=== PATIENT | female | born 1995 | race African-American/Black ===

== ENCOUNTER 2017-08-17 16:52 | Inpatient (IN) | payer OTHER ==
[2017-08-17] VITALS (7 sets, daily range): BP systolic 116–163; BP diastolic 67–82; PULSE 78–87; TEMP 36.8; O2SAT 98–100; Ht 170.2 cm; Wt 156.4 kg
[~2017-08-17] VITALS: Ht 170.2 cm; Wt 156.4 kg
[~2017-08-17 16:52] MED LIST: CHOL200010 PO; LISI-461 PO; LOSA50TA54 PO; NEOM1SUS21 OP
[2017-08-17] MEDS ORDERED: METHYLPREDNISOLONE 125 MG VIAL IV STA (17:20)
[2017-08-17] MEDS ORDERED: DiphenhydrAMINE HCL 50 MG/ML VIAL IV STA (17:20)
[2017-08-17] MEDS ORDERED: SODIUM CHLORIDE 0.9% 1000ML 1,000 ML IV STA (17:20)
[2017-08-17] MEDS ORDERED: RANITIDINE HCL 50 MG/100 ML D5W IV STA (17:20)
--- NOTE | 2017-08-17 17:26 | EMERGENCY ROOM VISIT NOTE ---
History Report prepared by Karlaibfaustino: Maryjo Kumari Under the Supervision of: Dr. Ambrose Johnston M.D. First contact with patient: 17:19 Chief Complaint: FACIAL PAIN/INJURY Stated Complaint: SWELLLING OF LIPS History of Present Illness The patient is a 21 year old female who presents to the Emergency Room with complaints of worsening facial swelling since 1130 this morning. She reports she has been taking Lisinopril for the past 9 years and this morning noticed swelling in her lips that slowly worsened throughout the day. She went to [facility] and was referred here to the ED for her symptoms. The patient denies any swelling in her throat or difficulty breathing. Source of History: patient Onset: 1130 this morning Position: head (face and lips) Quality: other (swelling) Timing: worsening Associated Symptoms: No SOB Review of Systems See HPI for pertinent positives & negatives. A total of 10 systems reviewed and were otherwise negative. Past Medical & Surgical Medical Problems: (1) Focal glomerular sclerosis (2) Hypertension Social History Smoking Status: Never Smoker Alcohol Use: occasionally Drug Use: none Marital Status: single Housing Status: lives with roommate Occupation Status: [employer] student Current/Historical Medications Scheduled Control Pills ( Control Pills), 1 TAB PO DAILY Cholecalciferol (Vitamin D), 2,000 INTER.UNIT PO DAILY Scheduled PRN Cetirizine Hcl (Zyrtec), 10 MG PO DAILY PRN for swelling Allergies Coded Allergies: Lisinopril (Unverified Allergy, Severe, SWELLING OF LIP, 08/17/17) Sulfamethoxazole w/Trimethoprim (Verified Allergy, Intermediate, hives, ) Physical Exam Vital Signs Date Time Temp Pulse Resp B/P (MAP) Pulse Ox O2 Delivery O2 Flow Rate FiO2 08/17/17 17:13 37.1 84 20 134/81 99 Room Air Physical Exam GENERAL: Patient is a healthy-appearing well-nourished 21 year old female HEAD: Normocephalic atraumatic EYES: Ocular movements intact pupils equal and react to light OROPHARYNX: Lower lip is grossly swollen, no swelling of the tongue, no mucosal involvement of the swelling involving the lower lip, mucous membranes are moist no exudates present no erythema or edema present NECK: Supple no nuchal rigidity. No stridor on exam CHEST: Good equal expansion LUNGS: No wheezing. Clear and equal to auscultation CARDIAC: Normal S1 and S2 ABDOMEN: Soft nontender no guarding BACK: No CVA tenderness EXTREMITIES: No pain upon palpation normal muscle strength in all groups no clubbing cyanosis or edema NEURO: Patient is following commands is answering questions appropriately. Alert and oriented x3 Cranial Nerves 2-12 grossly intact Medical Decision & Procedures Laboratory Results Labs reviewed by ED physician. Medications Administered Medications (Trade) Dose Ordered Sig/Nilesh Route Start Time Stop Time Status Last Admin Dose Admin Sodium Chloride 1,000 ml @ 999 mls/hr Q1H1M STAT IV 08/17/17 17:20 08/17/17 18:20 DC 08/17/17 18:32 999 MLS/HR Diphenhydramine HCl (Benadryl Inj) 50 mg NOW STAT IV 08/17/17 17:20 08/17/17 17:21 DC 08/17/17 18:32 50 MG Ranitidine HCl (zANTac IV) 50 mg NOW STAT IV 08/17/17 17:20 08/17/17 17:21 DC 08/17/17 18:32 50 MG Methylprednisolone Sodium Succinate (Solu-Medrol IV) 125 mg NOW STAT IV 08/17/17 17:20 08/17/17 17:21 DC 08/17/17 18:32 125 MG ED Course 1721: Past medical records reviewed. The patient was evaluated in room B4. A complete history and physical examination was performed. 1720: Solu-Medrol 125 mg IV, Zantac 50 mg IV, Benadryl 50 mg IV, NSS 1000 ml @ 999 mls/hr IV. 1727: I discussed the patients case with Dr. Holliday, [facility] Critical Care. The patient will be further evaluated. 1758: I discussed the patients case with Dr. Stubbs, [facility] Hospitalist. The patient will be further evaluated. Medical Decision Prior records/ancillary studies reviewed. Triage Nursing notes reviewed. The patient's history was concerning for possible allergic reaction. Differential diagnosis: Etiologies such as allergic reaction, anaphylaxis, urticaria, Davis-Devin syndrome, toxic epidermal necrolysis, erythema multiforme, cellulitis, as well as others were entertained. This is a 21-year-old female that takes lisinopril presents emergency Department with a enlarged lower lip. The patient has no mucosal swelling and does not appear to have any trouble swallowing. The angioedema appears limited to the lip. I believe based on the findings at the patient should be admitted so that she does not further progress. I did discuss the case with the ICU as well as the hospitalist. A type and screen was obtained in case the patient needs fresh frozen plasma later. She was also given Solu Medrol Benadryl and Zantac. Medication Reconcilliation Current Medication List: was personally reviewed by me Blood Pressure Screening Patient's blood pressure: Normal blood pressure Blood pressure disposition: Did not require urgent referral Consults Time Called: 1725 Consulting Physician: Dr. Holliday [facility] Critical Care Returned Call: 1727 I discussed the patients case with Dr. Holliday [facility] Critical Care. The patient will be further evaluated. Additional Consults: Time Called: 1743 Consulted Physician: Dr. Stubbs [facility] Hospitalist Returned Call: 1753 Additional Comments: I discussed the patients case with Dr. Stubbs [facility] Hospitalist. The patient will be further evaluated. Impression Primary Impression: Angio-edema Critical Care I have personally spent greater than 30 minutes of critical care time in the direct management of this patient. This includes bedside care, interpretation of diagnostic studies, and testing, discussion with consultants, patient, and family members, and other required patient management activities. This 30 minutes is in excess of all separately billable procedures. Scribe Attestation The scribe's documentation has been prepared under my direction and personally reviewed by me in its entirety. I confirm that the note above accurately reflects all work, treatment, procedures, and medical decision making performed by me. Departure Information Dispostion Being Evaluated By Hospitalist Prescriptions Cetirizine Hcl (ZYRTEC) 10 Mg Tab 10 MG PO DAILY Y for swelling for 14 Days, #14 TAB Prov: Edgar Holliday D.O. 08/18/17 Referrals [facility] (PCP) Patient Instructions My [facility] Problem Qualifiers Primary Impression: Angio-edema Encounter type: initial encounter Qualified Codes: T78.3XXA - Angioneurotic edema, initial encounter
[2017-08-17] MEDS ORDERED: BCPILLS PO (17:54)
[2017-08-17] MEDS ORDERED: ACETAMINOPHEN 325 MG TAB PO PRN (18:15)
[2017-08-17] MEDS ORDERED: ENOXAPARIN 40 MG/0.4 ML SYR SQ SCH (18:15)
[2017-08-17 18:19] LABS: BASO % 0.2 %; BASO ABS # 0.01 K/uL (0-0.2); COMPLETE YES; EOS % 1.5 %; HEMATOCRIT 41.9 % (37-47); IG% 0.2 %; LYMPH % 40.2 %; LYMPH ABS # 2.64 K/uL (1.2-3.4); MEAN CELL VOLUME 84.6 fL (80-100); MEAN CORPUSCULAR HEMOGLOBIN 26.7 pg (25-34); MEAN CORPUSCULAR HGB CONC 31.5 g/dl (32-36); MEAN PLATELET VOLUME 10.1 fL (7.4-10.4); NEUT % 52.9 %; PLATELET COUNT 256 K/uL (130-400); RED BLOOD COUNT 4.95 M/uL (4.2-5.4); WHITE BLOOD COUNT 6.56 K/uL (4.8-10.8)
[2017-08-17 18:39] LABS: BUN/CREATININE RATIO 16.2 (10-20); CALCIUM 9.4 mg/dl (8.5-10.1); CREATININE 0.79 mg/dl (0.60-1.20); POTASSIUM 3.9 mmol/L (3.5-5.1)
[2017-08-17 18:42] LABS: PHOSPHORUS 2.8 mg/dl (2.5-4.9)
[2017-08-17] MEDS ORDERED: ONDANSETRON INJ 2 MG/ML 2 ML VIAL IV PRN (19:00)
[2017-08-17] MEDS ORDERED: DiphenhydrAMINE HCL 50 MG/ML VIAL IV PRN (19:00)
[2017-08-17] MEDS: NORMOSOL R 1,000 ML IV SCH (19:57)
--- NOTE | 2017-08-17 20:19 | Critical Care Consultation ---
Critical Care Consultation Date of Consultation: Aug 17, 2017. Attending Physician: Reason for Consultation: Angioedema History of Present Illness This is a 21 y/o female with hx of focal glomerulosclerosis (on ACEI) presented to the clinic with angioedema. Patient states that she noted the swelling of the lower lip around 11:30am. Her friend gave her Benadryl and she fall asleep around 2:30pm for an hr. When she woke up her lips were more swollen. Complains of burning sensation of the lip. Denies itching or pain. Denies SOB, difficulty swallowing, chest pain, palpitation, lightheaded, dizziness or any other symptoms. Patient states that she was started on ACEI when she was at 7th grade, never had any problem. Denies any other medical problem. Patient was evaluated after 1 hr. She denies any change of her symptoms, denies SOB or swallowing difficulty. Family History Mother - HTN Father - HTN Social History Smoking Status: Never Smoker Drug Use: none Marital Status: single Housing Status: lives with roommate Occupation Status: [employer] student Allergies Coded Allergies: Lisinopril (Unverified Allergy, Severe, SWELLING OF LIP, 08/17/17) Sulfamethoxazole w/Trimethoprim (Verified Allergy, Intermediate, hives, ) Home Medications Scheduled Control Pills ( Control Pills), 1 TAB PO DAILY Cholecalciferol (Vitamin D), 2,000 INTER.UNIT PO DAILY Lisinopril (Zestril), 10 MG PO DAILY Losartan Potassium (Cozaar), 50 MG PO DAILY Current Inpatient Medications Current Inpatient Medications Medications (Trade) Dose Ordered Sig/Nilesh Route Start Time Stop Time Status Last Admin Dose Admin Sodium Chloride 1,000 ml @ 999 mls/hr Q1H1M STAT IV 08/17/17 17:20 08/17/17 18:20 Enoxaparin Sodium (Lovenox Inj) 40 mg Q24H SQ 08/17/17 18:15 09/16/17 18:14 UNV Acetaminophen (Tylenol Tab) 650 mg Q4H PRN PO 08/17/17 18:15 09/16/17 18:14 UNV Parenteral Electrolyte Solution 1,000 ml @ 100 mls/hr Q10H IV 08/17/17 18:15 09/16/17 18:14 UNV Review of Systems Constitutional: No fever, No chills ENT: + problem reported (swollen lower lip), No sore throat, No trouble swallowing Respiratory: No cough, No wheezing, No shortness of breath, No dyspnea on exertion, No dyspnea at rest Cardiovascular: No chest pain Abdomen: No pain, No nausea, No vomiting, No diarrhea, No constipation Musculoskeletal: No joint pain, No muscle pain Genitourinary - Female: No dysuria Neurologic: No weakness, No numbness/tingling Endocrine: No fatigue Hematologic / Lymphatic: No abnormal bleeding/bruising Integumentary: No rash Physical Exam Date Time Temp Pulse Resp B/P (MAP) Pulse Ox O2 Delivery O2 Flow Rate FiO2 08/17/17 17:13 37.1 84 20 134/81 99 Room Air General Appearance: well-appearing, WD/WN, no apparent distress, obese Head: normocephalic, atraumatic Eyes: PERRLA, no discharge, EOMI, sclerae normal, conjunctivae normal ENT: normal ear exam, normal nasal exam, normal throat exam, other (Angioedema of the lower lip) Neck: no tenderness, trachea midline, supple Respiratory: breath sounds normal, clear to auscultation, clear to percussion, no respiratory distress Cardiovasular: regular rate/rhythm, normal S1S2, no M/G/R Abdomen: non tender, normal bowel sounds, no rebound, no masses, no guarding Upper Extremities: no edema Lower Extremities: no edema Neuro: alert, oriented x 3, normal sensation, normal speech Psychiatric: normal affect Laboratory Results Last 24 Hours Test 08/17/17 18:01 Assessment & Plan This is a 21 y/o female presented to the ED with angioedema secondary to ACEI. Patient will be closely monitor in ICU for any airway obstruction or difficulty swallowing. Neuro - * CAM ICU: NEGATIVE. * Acetaminophen 650mg q4h prn Cardiac - * No cardiac hx * Monitor in tele Respiratory - * Angioedema * Monitor closely for airway obstruction, swallowing difficulty or worsening angioedema * Nasal tracheal intubation at the bedside. Consider aerosolized lidocaine if need for intubation. Patient breath better through the left nostril (side of the nose ring). * Type and cross. Hold 2 unit of FFP in the event of worsening angioedema * Continue Pulse Ox monitoring GI - * NPO except for ice chips RENAL/LYTES - * Normosol @ 100mls/hr * check PRP, mg and phos tomorrow am * Focal glomerulosclerosis * Will hold both lisinopril and losartan for now * Consider nephrology follow up as outpatient - * Full bathroom privilege ENDO - * No hx endocrinology prob HEME - * Stable H&H * No hx of heme prob ID - * No concerns for infection at this point. * Will monitor fever curve. LINES/IV ACCESS - * PIVs intact. DVT PROPHYLAXIS - * Lovenox 40mg daily Resident Physician Supervision Note: Dr. Garcia was resident physician during care of patient. I separately evaluated patient and did history and exam. I discussed the case with the resident and generally agree with the findings and plan. Patient critically ill due to angioedema of lips and concern for airway compromise. At this time the patient has gone 2 hours without significant increase in angioedema, she is able to tolerate his secretions and swallow easily and no dyspnea. Patient will be admitted to the ICU for close observation, there is any evidence of airway compromise or difficulty handling secretions she'll be administered 2 units of FFP and undergo fiberoptic laryngoscopy with likely nasal tracheal intubation. I have personally spent 40 minutes of critical care time in the direct management of this patient. This is a life/limb threatening event. This includes time spent evaluating patient, direct bedside care, chart review, placing orders, interpretation of diagnostic studies, discussion with consultants, patient, and family members, as well as other required patient management activities. This time is exclusive of all separately billable procedures, and teaching time and separate from and in addition to any other critical care service time. Documented By: Edgar Holliday DO
[2017-08-17] MEDS: METHYLPREDNISOLONE IV 60 MG in SYRINGE 0 ML IV SCH (23:41)
[2017-08-18] VITALS (11 sets, daily range): BP systolic 104–169; BP diastolic 56–88; PULSE 67–89; TEMP 36.6–36.8; O2SAT 98–100
[2017-08-18] MEDS ORDERED: FAMOTIDINE IV INJ 20 MG in DEXTROSE 5% 100ML 100 ML IV SCH ×2
[2017-08-18 04:52] LABS: BASO % 0.2 %; BASO ABS # 0.01 K/uL (0-0.2); COMPLETE YES; HEMATOCRIT 41.5 % (37-47); IG% 0.4 %; LYMPH % 14.9 %; LYMPH ABS # 0.75 K/uL (1.2-3.4); MEAN CELL VOLUME 83.8 fL (80-100); MEAN CORPUSCULAR HEMOGLOBIN 28.5 pg (25-34); MEAN PLATELET VOLUME 10.1 fL (7.4-10.4); NEUT % 82.5 %; PLATELET COUNT 233 K/uL (130-400); RED BLOOD COUNT 4.95 M/uL (4.2-5.4); WHITE BLOOD COUNT 5.02 K/uL (4.8-10.8)
[2017-08-18 05:10] LABS: BUN/CREATININE RATIO 12.6 (10-20); CALCIUM 9.2 mg/dl (8.5-10.1); CREATININE 0.81 mg/dl (0.60-1.20); MAGNESIUM 2.2 mg/dl (1.8-2.4); POTASSIUM 4.4 mmol/L (3.5-5.1)
[2017-08-18 05:12] LABS: PHOSPHORUS 2.4 mg/dl (2.5-4.9)
[2017-08-18] MEDS ORDERED: SODIUM PHOSPHATE 3 MMOL/1 ML INFUSION IV STA (05:43)
[2017-08-18] MEDS: METHYLPREDNISOLONE IV 60 MG in SYRINGE 0 ML IV SCH (05:44)
[2017-08-18] MEDS: NORMOSOL R 1,000 ML IV SCH (05:44)
[2017-08-18] MEDS ORDERED: SODIUM PHOSPHATE INJ 15 MMOL in SODIUM CHLORIDE 0.9% 250ML 250 ML IV SCH (06:30)
[2017-08-18] MEDS ORDERED: CETI10TA10 PO (08:49)
--- NOTE | 2017-08-18 08:59 | Discharge Instructions ---
Discharge Instructions Date of Service Aug 18, 2017. Admission Reason for Admission: Angio-Edema Discharge Discharge Diagnosis / Problem: SANDRA inhibitor Angio-Edema Discharge Goals Goal(s): Learn about illness Activity Recommendations Activity Limitations: resume your previous activity Lifting Limitations: none Exercise/Sports Limitations: none Shower/Bathe: no limitations Driving or Machine Use: no limitations Call 911 for ANY difficultly swallowing, breathing, or any other concerns. DO NOT TAKE ANY LISINOPRIL OR LOSARTAN! Do not take any ibuprofen, motrin, naproxen, or any NSAID for the next 2 weeks Instructions / Follow-Up Instructions / Follow-Up Follow up with your fountain helper, (Kidney Doctor) in 1-2 weeks for recommendations regarding any kidney medications for Focal Glomerular Sclerosis. Current Hospital Diet Patient's current hospital diet: Regular Diet Discharge Diet Recommended Diet: Regular Diet Pending Studies Studies pending at discharge: no School Instructions Return To School: 1 week Additional Instructions: Patient requires close observation, please allow Ms. Surgeon to complete coursework at home for the week 08/17-08/21. Medical Emergencies . Who to Call and When: Medical Emergencies: If at any time you feel your situation is an emergency, please call 911 immediately. . Non-Emergent Contact Non-Emergency issues call your: Building Construction Engineer . Past History Medical & Surgical History: (1) Angio-edema (2) Focal glomerular sclerosis . "Provider Documentation" section prepared by Edgar Holliday. . VTE Core Measure Inpt VTE Proph given/why not?: Enoxaparin (Lovenox)SQ
--- NOTE | 2017-08-18 09:26 | Critical Care Progress Note ---
Critical Care Progress Note Date of Service Aug 18, 2017. Attending Dr. Holliday Subjective Patient was seen at the bedside. No acute event overnight. Still has swelling of the lip, hasn't increase or decrease since yesterday. She was able to sleep overnight, lying flat, without any difficulty. Able to swallow secretions. No stridors. Denies SOB, difficulty swallowing or any other sx. She lives with roommate. Objective GENERAL - Alert, well appearing, sitting in bed, no acute distress HEAD - NC/AT EYES - PERRL with EOMI bilaterally. Sclera anicteric. EARS - No deformities of external structures noted on gross examination bilaterally. MOUTH/OROPHARYNX - Swelling noted on the lips (No change from yesterday), Without perioral cyanosis. Buccal mucosa, and tongue normal. NECK - Supple, No lymphadenopathy, No nuchal rigidity. LUNGS - Chest wall symmetric. Good air movement bilaterally. No wheezing or rhonchi was noted. CARDIAC - RRR, normal S1/S2. No murmur, rubs, or gallops appreciated. ABDOMEN - Soft, non-tender, normo-active bowel sounds, no masses, no rebound or guarding. No palpable masses, hepatosplenomegaly, or ascites noted. EXTREMITIES - No clubbing/peripheral cyanosis. Calves supple. SKIN - Warm, dry, intact. No rash NEUROLOGIC - A&Ox3. Speech normal. Cranial nerves II through XII grossly intact. Sensory intact to light touch throughout. PSYCH - Mood and affect appropriate. Current SOFA Score SOFA Score Response (Comments) Value Platelets (x10) > 150 0 Bilirubin (mg/dL) < 1.2 0 Burns Coma Score 15 0 Level of Hypotension No Hypotension 0 Creatinine (mg/dL) < 1.2 0 Total 0 Assessment & Plan This is a 21 y/o female presented to the ED with angioedema secondary to ACEI. Patient was admitted to ICU to closely airway obstruction or difficulty swallowing. Able to sleep overnight without any difficulty. Able to swallow secretions. Denies dyspnea, swallowing difficulty or any other symptoms. Patient is started on regular diet, if she tolerates well and no worsening of symptoms, possible discharge today. Dr Ha verbalized the discharge instruction to patient and she will also given a printout of the instruction on discharge. Patient verbalized understanding of the instruction. She needs to be closely monitor for next 1 week. Neuro - * CAM ICU: NEGATIVE. * Acetaminophen 650mg q4h prn Cardiac - * No cardiac hx * Monitor in tele Respiratory - * Angioedema * Monitor closely for airway obstruction, swallowing difficulty or worsening angioedema * Nasal tracheal intubation at the bedside. Consider aerosolized lidocaine if need for intubation. Patient breath better through the left nostril (side of the nose ring). * Methylprednisone 60mg IV q6h, Famotidine 20mg IV q12h @ 200mls/hr * Type and cross. Hold 2 unit of FFP in the event of worsening angioedema * Continue Pulse Ox monitoring GI - * Regular diet. RENAL/LYTES - * D/kati IVF * Phos low (2.4) - given 15mmol of sodium phos * Focal glomerulosclerosis * Will hold both lisinopril and losartan for now * d/c Lisinopril and hold Losartan on discharge * Resume Losartan only after consulting with the nephrology - * Full bathroom privilege ENDO - * No hx endocrinology prob HEME - * Stable H&H * No h/o of heme prob ID - * No concerns for infection at this point. * Will monitor fever curve. LINES/IV ACCESS - * PIVs intact. DVT PROPHYLAXIS - * Lovenox 40mg daily No complaints, lower lip still swollen; however, no discomfort with sleep last night. No problem with secretions, no dyspnea. Lives with roommate and desires to be discharged. Joint Medical decision making, advised patient to STOP all SANDRA ARBS. Instructed to follow up with nephrology for focal glomerular sclerosis and possible resumption of ARBS. It appears there is a cross reactivity rate ranging from 0.12-10% for angioedema from ARB. Stable for D/c home. Consults & Procedures Consultants: none Procedures: none Data Medications: Current Inpatient Medications Medications (Trade) Dose Ordered Sig/Nilesh Route Start Time Stop Time Status Last Admin Dose Admin Acetaminophen (Tylenol Tab) 650 mg Q4H PRN PO 08/17/17 18:15 09/16/17 18:14 Parenteral Electrolyte Solution 1,000 ml @ 100 mls/hr Q10H IV 08/17/17 20:00 09/16/17 19:59 08/18/17 05:44 100 MLS/HR Methylprednisolone Sodium Succinate 60 mg/Syringe 0.96 ml @ 1.5 mls/min Q6H IV 08/18/17 00:00 09/17/17 00:00 08/18/17 05:44 1.5 MLS/MIN Famotidine 20 mg/ Dextrose 102 ml @ 200 mls/hr Q12H IV 08/18/17 00:00 09/17/17 00:00 08/17/17 23:41 200 MLS/HR Diphenhydramine HCl (Benadryl Inj) 50 mg Q6H PRN IV 08/17/17 19:00 09/16/17 18:59 Ondansetron HCl (Zofran Inj) 4 mg Q6H PRN IV 08/17/17 19:00 09/16/17 18:59 Sodium Phosphate 15 mmol/Sodium Chloride 255 ml @ 88 mls/hr TODAY@0630 IV 08/18/17 06:30 08/18/17 09:24 08/18/17 06:42 88 MLS/HR Vital Signs: Date Time Temp Pulse Resp B/P (MAP) Pulse Ox O2 Delivery O2 Flow Rate FiO2 08/18/17 06:11 73 19 136/85 (102) 98 Room Air 08/18/17 05:01 67 21 104/62 (81) 99 08/18/17 04:02 78 22 110/56 (90) 99 08/18/17 04:00 36.8 08/18/17 04:00 100 Room Air 08/18/17 03:02 85 19 136/60 (89) 100 08/18/17 02:01 86 19 160/88 (102) 100 08/18/17 01:01 79 21 169/80 (111) 99 08/18/17 00:02 89 22 152/82 (100) 99 08/18/17 00:01 36.6 08/17/17 23:59 100 Room Air 08/17/17 23:01 80 15 116/68 (86) 100 08/17/17 22:01 85 19 124/74 (102) 98 08/17/17 21:01 78 13 134/67 (91) 99 08/17/17 20:02 79 14 133/75 (84) 100 08/17/17 20:00 36.8 87 16 163/82 100 Room Air 08/17/17 19:10 87 16 163/82 (114) 100 08/17/17 18:36 86 18 154/108 99 Room Air 08/17/17 17:13 37.1 84 20 134/81 99 Room Air Laboratory Results: Last 24 Hours Test 08/17/17 18:01 08/17/17 23:37 08/18/17 04:44 08/18/17 05:39 White Blood Count 6.56 K/uL 5.02 K/uL Red Blood Count 4.95 M/uL 4.95 M/uL Hemoglobin 13.2 g/dL 14.1 g/dL Hematocrit 41.9 % 41.5 % Mean Corpuscular Volume 84.6 fL 83.8 fL Mean Corpuscular Hemoglobin 26.7 pg 28.5 pg Mean Corpuscular Hemoglobin Concent 31.5 g/dl 34.0 g/dl Platelet Count 256 K/uL 233 K/uL Mean Platelet Volume 10.1 fL 10.1 fL Neutrophils (%) (Auto) 52.9 % 82.5 % Lymphocytes (%) (Auto) 40.2 % 14.9 % Monocytes (%) (Auto) 5.0 % 2.0 % Eosinophils (%) (Auto) 1.5 % 0.0 % Basophils (%) (Auto) 0.2 % 0.2 % Neutrophils # (Auto) 3.47 K/uL 4.14 K/uL Lymphocytes # (Auto) 2.64 K/uL 0.75 K/uL Monocytes # (Auto) 0.33 K/uL 0.10 K/uL Eosinophils # (Auto) 0.10 K/uL 0.00 K/uL Basophils # (Auto) 0.01 K/uL 0.01 K/uL RDW Standard Deviation 40.7 fL 38.8 fL RDW Coefficient of Variation 13.2 % 13.0 % Immature Granulocyte % (Auto) 0.2 % 0.4 % Immature Granulocyte # (Auto) 0.01 K/uL 0.02 K/uL Sodium Level 138 mmol/L 138 mmol/L Potassium Level 3.9 mmol/L 4.4 mmol/L Chloride Level 107 mmol/L 108 mmol/L Carbon Dioxide Level 22 mmol/L 22 mmol/L Anion Gap 9.0 mmol/L 8.0 mmol/L Blood Urea Nitrogen 13 mg/dl 10 mg/dl Creatinine 0.79 mg/dl 0.81 mg/dl Est Creatinine Clear Calc Drug Dose 150.5 ml/min 175.2 ml/min Estimated GFR () 125.8 122.0 Estimated GFR (Non- 108.5 105.3 BUN/Creatinine Ratio 16.2 12.6 Random Glucose 89 mg/dl 128 mg/dl Calcium Level 9.4 mg/dl 9.2 mg/dl Phosphorus Level 2.8 mg/dl 2.4 mg/dl Albumin 3.3 gm/dl 3.1 gm/dl Bedside Glucose 130 mg/dl 118 mg/dl Magnesium Level 2.2 mg/dl Total Bilirubin 0.4 mg/dl Direct Bilirubin 0.1 mg/dl Aspartate Amino Transf (AST/SGOT) 62 U/L Alanine Aminotransferase (ALT/SGPT) 104 U/L Alkaline Phosphatase 125 U/L Total Protein 7.4 gm/dl
--- NOTE | 2017-08-18 09:30 | History and Physical ---
History & Physical Date & Time of Service: Aug 18, 2017 at 09:18. The patient was seen and examined on 08/17/2017. Chief Complaint: Angio-Edema [facility] of Present [facility]ness Source: patient The patient is a 21-year-old female who presents to the emergency department with acute onset of facial swelling at 11:30, with worsening as the day progressed. She takes lisinopril for glomerulonephritis for the past 9 years. She was seen at [facility] this morning and was referred to the ED for her symptoms she has no difficulty swallowing or breathing, and has no abdominal discomfort or bloating. She in general otherwise feels well. Family History Noncontributory Social History Smoking Status: Never Smoker Smokeless Tobacco Use: No Alcohol Use: none Drug Use: none Marital Status: single Occupational Status: [employer] Immunizations History of Influenza Vaccine: Unknown History of Tetanus Vaccine?: Unknown History of Pneumococcal: Unknown History of Hepatitis B Vaccine: Unknown Multi-Drug Resistant Organisms History of MDRO: No Allergies Coded Allergies: Lisinopril (Unverified Allergy, Severe, SWELLING OF LIP, 08/17/17) Sulfamethoxazole w/Trimethoprim (Verified Allergy, Intermediate, hives, ) Home Medications Scheduled Control Pills ( Control Pills), 1 TAB PO DAILY Cholecalciferol (Vitamin D), 2,000 INTER.UNIT PO DAILY Scheduled PRN Cetirizine Hcl (Zyrtec), 10 MG PO DAILY PRN for swelling Review of Systems The patient denies chest pain, palpitations, shortness of breath, cough, lower extremity swelling, vision change, hearing change, sore throat, fevers, chills, sweats, weight change, fatigue, nausea, vomiting, diarrhea or constipation, abdominal pain, pelvic pain, blood in urine or stool, dysuria, urinary frequency or urgency, lightheadedness, dizziness, headache, memory loss, rash, abnormal bruising or bleeding, imbalance, focal or generalized weakness, numbness or tingling in arms or legs, generalized arthralgias or myalgias, back or neck pain, night sweats, or allergy symptoms. The review of systems is otherwise negative other than for that already noted above, and at least 10 systems have been reviewed. Physical Exam Vital Signs Date Time Temp Pulse Resp B/P (MAP) Pulse Ox O2 Delivery O2 Flow Rate FiO2 9/26/17 09:07 36.8 77 19 98 Room Air 08/18/17 08:00 36.8 77 19 157/85 (109) 98 Room Air 08/18/17 08:00 Room Air 08/18/17 06:11 73 19 136/85 (102) 98 Room Air 08/18/17 05:01 67 21 104/62 (81) 99 08/18/17 04:02 78 22 110/56 (90) 99 08/18/17 04:00 36.8 08/18/17 04:00 100 Room Air 08/18/17 03:02 85 19 136/60 (89) 100 08/18/17 02:01 86 19 160/88 (102) 100 08/18/17 01:01 79 21 169/80 (111) 99 08/18/17 00:02 89 22 152/82 (100) 99 08/18/17 00:01 36.6 08/17/17 23:59 100 Room Air 08/17/17 23:01 80 15 116/68 (86) 100 08/17/17 22:01 85 19 124/74 (102) 98 08/17/17 21:01 78 13 134/67 (91) 99 08/17/17 20:02 79 14 133/75 (84) 100 08/17/17 20:00 36.8 87 16 163/82 100 Room Air 08/17/17 19:10 87 16 163/82 (114) 100 08/17/17 18:36 86 18 154/108 99 Room Air 08/17/17 17:13 37.1 84 20 134/81 99 Room Air The patient is awake, well-developed and adequately nourished, alert and oriented 3, has significant swelling of lower lip, sitting upright in bed and in no acute distress. HEENT--PERRL, EOMI, mucous membranes and oropharynx normal. Neck--supple, no JVD or bruits, thyroid normal, trachea midline, no adenopathy. Heart--normal S1 and S2, no extra beats, no murmurs, rubs or gallops. Lungs--clear bilaterally with good air movement, no respiratory distress, no accessory muscle use. Abdomen--normal bowel sounds and soft, nontender and nondistended, no hernias or masses, no organomegaly. Extremities--no cyanosis, clubbing or edema. There are good distal pulses b/l. Dermatologic--normal skin turgor, normal color, warm and dry, no abnormal lymph nodes, no rash. Neurologic--cranial nerves II through XII grossly intact, motor and sensory examination normal. Rheumatologic--normal range of motion, nontender, muscles and joints. Psychiatric--normal affect. Diagnostics Laboratory Results Results Past 24 Hours Test 08/17/17 18:01 08/17/17 23:37 08/18/17 04:44 08/18/17 05:39 Range/Units White Blood Count 6.56 5.02 4.8-10.8 K/uL Red Blood Count 4.95 4.95 4.2-5.4 M/uL Hemoglobin 13.2 14.1 12.0-16.0 g/dL Hematocrit 41.9 41.5 37-47 % Mean Corpuscular Volume 84.6 83.8 80-100 fL Mean Corpuscular Hemoglobin 26.7 28.5 25-34 pg Mean Corpuscular Hemoglobin Concent 31.5 34.0 32-36 g/dl Platelet Count 256 233 130-400 K/uL Mean Platelet Volume 10.1 10.1 7.4-10.4 fL Neutrophils (%) (Auto) 52.9 82.5 % Lymphocytes (%) (Auto) 40.2 14.9 % Monocytes (%) (Auto) 5.0 2.0 % Eosinophils (%) (Auto) 1.5 0.0 % Basophils (%) (Auto) 0.2 0.2 % Neutrophils # (Auto) 3.47 4.14 1.4-6.5 K/uL Lymphocytes # (Auto) 2.64 0.75 1.2-3.4 K/uL Monocytes # (Auto) 0.33 0.10 0.11-0.59 K/uL Eosinophils # (Auto) 0.10 0.00 0-0.5 K/uL Basophils # (Auto) 0.01 0.01 0-0.2 K/uL RDW Standard Deviation 40.7 38.8 36.4-46.3 fL RDW Coefficient of Variation 13.2 13.0 11.5-14.5 % Immature Granulocyte % (Auto) 0.2 0.4 % Immature Granulocyte # (Auto) 0.01 0.02 0.00-0.02 K/uL Sodium Level 138 138 136-145 mmol/L Potassium Level 3.9 4.4 3.5-5.1 mmol/L Chloride Level 107 108 98-107 mmol/L Carbon Dioxide Level 22 22 21-32 mmol/L Anion Gap 9.0 8.0 3-11 mmol/L Blood Urea Nitrogen 13 10 7-18 mg/dl Creatinine 0.79 0.81 0.60-1.20 mg/dl Est Creatinine Clear Calc Drug Dose 150.5 175.2 ml/min Estimated GFR () 125.8 122.0 Estimated GFR (Non- 108.5 105.3 BUN/Creatinine Ratio 16.2 12.6 10-20 Random Glucose 89 128 70-99 mg/dl Calcium Level 9.4 9.2 8.5-10.1 mg/dl Phosphorus Level 2.8 2.4 2.5-4.9 mg/dl Albumin 3.3 3.1 3.4-5.0 gm/dl Bedside Glucose 130 118 70-90 mg/dl Magnesium Level 2.2 1.8-2.4 mg/dl Total Bilirubin 0.4 0.2-1 mg/dl Direct Bilirubin 0.1 0-0.2 mg/dl Aspartate Amino Transf (AST/SGOT) 62 15-37 U/L Alanine Aminotransferase (ALT/SGPT) 104 12-78 U/L Alkaline Phosphatase 125 45-117 U/L Total Protein 7.4 6.4-8.2 gm/dl Microbiology Results 08/17/17 MRSA DNA Surveillance Screen - Final, Complete Specimen Negative for MRSA by DNA Probe Impression Assessment and Plan Facial Angioedema secondary to GELACIO inhibitor-- The emergency department physician has consulted the safety equipment tester to admit the patient to the ICU. Nothing by mouth except essential medications. Hold all Gelacio inhibitors and hold losartan. Her mother is speaking with her administrative job titles [place]. She has received Solu-Medrol 125 mg in the ED. Solu-Medrol 60 mg IV every 6 hours. Famotidine 20 mg IV every 12 hours Benadryl 50 mg IV every 4 hours when necessary. Remainder of orders are safety equipment tester. Level of Care Critical Care Advanced Directives Existing Advance Directive: No Existing Living Will: No Existing Power of Tablet Making Machine Operator: No Resuscitation Status FULL RESUSCITATION VTE Prophylaxis VTE Risk Assessment Done? Y/N: Yes Risk Level: Low Given or contraindicated: SCD's Social Service Consult None Apply
--- NOTE | 2017-08-18 11:37 | Discharge Summary ---
Discharge Summary Date of Service Aug 18, 2017. Discharge Summary Admission Date: Aug 17, 2017 at 18:16 Discharge Date: Aug 18, 2017 Discharge Disposition: Home Principal Diagnosis: Angioedema secondary to ACEI Immunizations: Have You Had Influenza Vaccine: Unknown History of Tetanus Vaccine?: Unknown History of Pneumococcal: Unknown History of Hepatitis B Vaccine: Unknown Medication Reconciliation New Medications: Cetirizine Hcl (Zyrtec) 10 Mg Tab 10 MG PO DAILY PRN for swelling for 14 Days, #14 TAB Continued Medications: Control Pills ( Control Pills) Tab 1 TAB PO DAILY, TAB Cholecalciferol (Vitamin D) 2,000 Unit Cap 2000 INTER.UNIT PO DAILY Discontinued Medications: Lisinopril (Zestril) 10 Mg Tab 10 MG PO DAILY, TAB Losartan Potassium (Cozaar) 50 Mg Tab 50 MG PO DAILY, TAB Discharge Exam Patient was seen at the bedside prior to discharge. Patient tolerated food well and denied any swallowing difficulty or dyspnea. Review of Systems: Constitutional: No fever, No chills ENT: + problem reported (swelling of the lip), No nasal symptoms, No sore throat, No trouble swallowing Respiratory: No cough, No wheezing, No shortness of breath, No dyspnea on exertion, No dyspnea at rest Cardiovascular: No chest pain Abdomen: No pain, No nausea, No vomiting, No diarrhea, No constipation Endocrine: No fatigue Integumentary: No rash, No itch Physical Exam: General Appearance: WD/WN, no apparent distress Eyes: normal inspection, PERRL, EOMI ENT: + pertinent finding (angioedema of the lip) Neck: supple, trachea midline Respiratory/Chest: chest non-tender, lungs clear, normal breath sounds, no respiratory distress, no accessory muscle use Cardiovascular: regular rate, rhythm, no edema Abdomen / GI: normal bowel sounds, non tender, soft Extremities: no pedal edema, non-tender Neurologic/Psychiatric: no motor/sensory deficits, alert, oriented x 3 Skin: normal color, warm/dry, no rash Hospital Course This is a 21 y/o female presented to the ED with angioedema secondary to ACEI. Patient was admitted to ICU to closely airway obstruction or difficulty swallowing. Able to sleep overnight without any difficulty. Able to swallow secretions. Denies dyspnea, swallowing difficulty or any other symptoms. Patient is started on regular diet, she tolerate well and no worsening of symptoms. Dr Ha verbalized the discharge instruction to patient and she will also given a printout of the instruction on discharge. Patient verbalized understanding of the instruction. She needs to be closely monitor for next 1 week. Don't take lisinopril and before resuming Losartan patient needs follow up with the hammer fitter. Recommend not to take Losartan for next 2 weeks. Patient lives with roommate. Instructed there is any worsening of symptoms, should call 911. I personally spoke with her Evaluation Advisor Dr. Du and explained him that patient can't be on ACEI given the angioedema of the lip. Also recommend that she shouldn't be on ARB for next 2 wks. Neuro - * CAM ICU: NEGATIVE. * Acetaminophen 650mg q4h prn Cardiac - * No cardiac hx * Monitor in tele Respiratory - * Angioedema * Monitor closely for airway obstruction, swallowing difficulty or worsening angioedema * Nasal tracheal intubation at the bedside. Consider aerosolized lidocaine if need for intubation. Patient breath better through the left nostril (side of the nose ring). * Methylprednisone 60mg IV q6h, Famotidine 20mg IV q12h @ 200mls/hr * Type and cross. Hold 2 unit of FFP in the event of worsening angioedema * Continue Pulse Ox monitoring GI - * Regular diet. RENAL/LYTES - * D/kati IVF * Phos low (2.4) - given 15mmol of sodium phos * Focal glomerulosclerosis * Will hold both lisinopril and losartan for now * d/c Lisinopril and hold Losartan on discharge * Resume Losartan only after consulting with the nephrology - * Full bathroom privilege ENDO - * No hx endocrinology prob HEME - * Stable H&H * No h/o of heme prob ID - * No concerns for infection at this point. * Will monitor fever curve. LINES/IV ACCESS - * PIVs intact. DVT PROPHYLAXIS - * Lovenox 40mg daily Total Time Spent: Greater than 30 minutes This includes examination of the patient, discharge planning, medication reconciliation, and communication with other providers. Discharge Instructions Please refer to the electronic Patient Visit Report (Discharge Instructions) for additional information.
== END 2017-08-18 10:30 | disposition home or self-care (01) | DRG 916 ==
LOC: C.EDB 16:53 → C.MSICU 18:16 → ENRESERV 18:20
PROVIDERS: ADMIT Hospitalist; ATTEND Hospitalist
DX: T78.3XXA Angioneurotic edema, initial encounter (principal); T46.4X5A Adverse effect of angiotensin-converting-enzyme inhibitors, initial encounter; I10 Essential (primary) hypertension; Z79.3 Long term (current) use of hormonal contraceptives; Z79.899 Other long term (current) drug therapy